=== PATIENT | male | born 1955 | race Caucasian/White ===

== ENCOUNTER 2017-07-26 09:52 | Inpatient (IN) | payer OTHER ==
[2017-07-26 23:36] VITALS: BP 155/96
[2017-07-26] MEDS ORDERED: EFFEXOR XR150 MG PO (23:47)
[2017-07-26] MEDS ORDERED: RISPERDAL1 MG PO (23:48)
[2017-07-26] MEDS ORDERED: NEURONTIN300 MG PO (23:51)
[2017-07-26] MEDS ORDERED: DOXEPIN HCL10 MG PO (23:52)
[2017-07-26] MEDS ORDERED: PROTONIX40 MG PO (23:53)
[2017-07-26] MEDS ORDERED: XANAX2 MG PO (23:54)
[2017-07-27 08:00] VITALS: BP 134/70
[2017-07-27 16:13] VITALS: BP 159/90
[2017-07-27 18:18] VITALS: BP 154/89
[2017-07-28 06:57] VITALS: BP 139/78
[2017-07-28 07:50] VITALS: BP 119/79
[2017-07-28 16:25] VITALS: BP 159/96
[2017-07-28 19:24] VITALS: BP 128/70
[2017-07-29 09:51] VITALS: BP 141/76
[2017-07-29 16:45] VITALS: BP 133/81
[2017-07-30 08:03] VITALS: BP 135/76
[2017-07-30] MEDS ORDERED: RISPERDAL2 MG PO (08:48)
[2017-07-30] MEDS ORDERED: VISTARIL50 MG PO (08:48)
[2017-07-30] MEDS ORDERED: FOLIC ACID1 MG PO (08:48)
[2017-07-30] MEDS ORDERED: SINEQUAN25 MG PO (08:48)
[2017-07-30] MEDS ORDERED: GABAPENTIN600 MG PO (08:48)
[2017-07-30] MEDS ORDERED: Thiamine,Vitamin B1 PO (08:48)
== END 2017-07-30 10:19 | disposition home or self-care (01) | DRG 885 ==
LOC: 1WEST 09:52 → ENRESERV 11:26 → 1WEST 21:48
PROC: HZ2ZZZZ Detoxification Services for Substance Abuse Treatment (ICD-10-PCS; principal; 2017-07-26)
DX: F31.4 Bipolar disorder, current episode depressed, severe, without psychotic features (principal); R45.851 Suicidal ideations; F13.239 Sedative, hypnotic or anxiolytic dependence with withdrawal, unspecified; F10.239 Alcohol dependence with withdrawal, unspecified; F41.9 Anxiety disorder, unspecified; Z59.9 Problem related to housing and economic circumstances, unspecified
CPT/HCPCS: 97150 GO; 97166 GO; 99202; Q0177